=== PATIENT | male | born 1960 | race African-American/Black ===

== ENCOUNTER 2018-05-07 09:48 | Inpatient (IN) | payer MEDICAID ==
[~2018-05-07] VITALS: Ht 167.6 cm; Wt 64.9 kg
[2018-05-07] VITALS (22 sets, daily range): BP systolic 109–148; BP diastolic 35–88
[2018-05-07] MEDS ORDERED: SODIUM CHLORIDE 0.9% 1,000 ML IV ONE (10:52)
[2018-05-07] MEDS ORDERED: LEVETIRACETAM 1000MG/100ML 100 ML IV ONE (11:30)
[2018-05-07 11:53] LABS: BASOPHILS % 1.4 % (0.0-2.0); EOSINOPHILS % 0.2 % (0.0-5.0); HEMATOCRIT. 41.6 % (42.0-52.0); HEMOGLOBIN. 14.5 g/dL (14.0-18.0); LYMPHOCYTES % 11.4 % (20.0-50.0); MEAN CORPUSCULAR HEMOGLOBIN 34.6 pg (28.0-32.0); MEAN CORPUSCULAR VOLUME 99.3 fL (80.0-94.0); MEAN PLATELET VOLUME 8.2 fl (7.4-10.4); MONOCYTES % 9.5 % (2.0-8.0); NEUTROPHILS % 77.5 % (40.0-76.0); PLATELET 235 x1000/uL (130-400); RED BLOOD CELL COUNT 4.19 mill/uL (4.7-6.1); RED CELL DISTRIBUTION WIDTH 13.9 % (11.6-14.6)
[2018-05-07 11:59] LABS: CHLORIDE 100 mEq/L (98-107)
[2018-05-07 12:01] LABS: PROTHROMBIN TIME 10.5 sec (9.1-11.1)
[2018-05-07 12:03] LABS: ETHANOL BLOOD < 10 mg/dL
[2018-05-07] MEDS ORDERED: GADOBENATE DIMEGLUMINE 529 MG/ML 10ML IV ONE (12:25)
[2018-05-07 14:18] LABS: CLARITY URINE CLEAR (CLEAR); COLOR URINE YELLOW (YELLOW); KETONES URINE 1+ (NEGATIVE); LEUKOCYTE ESTERASE URINE NEGATIVE (NEGATIVE); NITRITE URINE NEGATIVE (NEGATIVE); OCCULT BLOOD URINE TRACE (NEGATIVE); PROTEIN URINE TRACE (NEGATIVE); SPECIFIC GRAVITY URINE 1.024 (1.005-1.030)
[2018-05-07 14:34] LABS: *AMPHETAMINES SCREEN URINE NEGATIVE (NEGATIVE); CANNABINOID URINE SCREEN NEGATIVE (NEGATIVE); PHENCYCLIDINE URINE SCREEN NEGATIVE (NEGATIVE)
[2018-05-07 14:35] LABS: *BARBITURATES SCREEN URINE NEGATIVE (NEGATIVE); *BENZODIAZEPINES SCREEN URINE NEGATIVE (NEGATIVE); *COCAINE SCREEN URINE NEGATIVE (NEGATIVE); METHADONE URINE SCREEN NEGATIVE (NEGATIVE); OPIATES URINE SCREEN NEGATIVE (NEGATIVE)
[2018-05-07] MEDS ORDERED: SODIUM CHLORIDE 0.45% 1,000 ML IV SCH (14:43)
[2018-05-07] MEDS ORDERED: ONDANSETRON HCL 4MG/2ML INJ IV PRN (14:45)
[2018-05-07] MEDS ORDERED: LORAZEPAM 2MG/ML CPJ IV PRN (14:45)
[2018-05-07] MEDS ORDERED: DIPHENHYDRAMINE 50MG/ML VIAL IV ONE (15:00)
[2018-05-07] MEDS ORDERED: METOCLOPRAMIDE HCL 10MG/2ML VIAL IV ONE (15:00)
[2018-05-07] MEDS ORDERED: DEXAMETHASONE 10 MG/ML VIAL IV ONE (15:00)
[2018-05-07] MEDS ORDERED: TETANUS, DIPHTHERIA, PERTUSSIS VAC/PF 0.5ML (>7YR OLD) IM ONE (15:00)
[2018-05-07] MEDS: HYDROCODONE/ACETAMINOPHEN 5/325MG TABLET PO PRN (15:09)
[2018-05-07] MEDS ORDERED: LEVETIRACETAM 500MG PREMIX 100 ML IV ONE (15:15)
[2018-05-07] MEDS ORDERED: LEVETIRACETAM 500MG PREMIX 100 ML IV SCH (17:00)
[2018-05-07] MEDS: DEXT 5%/LACTATED RINGERS 1,000 ML IV SCH (17:15)
[2018-05-07] MEDS ORDERED: NICARDIPINE 100 MG in SODIUM CHLORIDE 0.9% 60 ML IV PRN ×2 (17:30→17:45)
[2018-05-07] MEDS: DEXAMETHASONE 4MG/ML 1ML VIAL IV SCH (17:33)
[2018-05-07] MEDS ORDERED: DEXAMETHASONE 4MG/ML 1ML VIAL IV SCH (18:00)
[2018-05-07] MEDS ORDERED: MANNITOL 20% (20GM/100ML) BAG 500ML PREMIX IV NR (19:30)
[2018-05-07] MEDS: LEVETIRACETAM 500MG in SODIUM CHLORIDE 0.9% 100ML IV SCH (21:46)
[2018-05-08] VITALS (77 sets, daily range): BP systolic 72–158; BP diastolic 38–93
[2018-05-08] MEDS: DEXAMETHASONE 4MG/ML 1ML VIAL IV SCH ×4 (00:32→17:09)
[2018-05-08] MEDS: MORPHINE SULFATE 4 MG/ML CPJ (NOT FOR IM USE) IV PRN ×5 (01:48→19:55)
[2018-05-08 06:15] LABS: BASOPHILS % 0.4 % (0.0-2.0); HEMATOCRIT. 40.5 % (42.0-52.0); HEMOGLOBIN. 13.8 g/dL (14.0-18.0); LYMPHOCYTES % 14.3 % (20.0-50.0); MEAN CORPUSCULAR HEMOGLOBIN 34.2 pg (28.0-32.0); MEAN CORPUSCULAR VOLUME 100.1 fL (80.0-94.0); MEAN PLATELET VOLUME 8.8 fl (7.4-10.4); MONOCYTES % 2.7 % (2.0-8.0); NEUTROPHILS % 82.6 % (40.0-76.0); PLATELET 246 x1000/uL (130-400); RED BLOOD CELL COUNT 4.04 mill/uL (4.7-6.1); RED CELL DISTRIBUTION WIDTH 13.9 % (11.6-14.6)
[2018-05-08] MEDS ORDERED: ROCURONIUM BROMIDE 10MG/ML VIAL 5ML IV ONE ×2 (06:42→08:21)
[2018-05-08] MEDS ORDERED: FENTANYL CITRATE/PF 50MCG/ML 5ML VIAL ONE (06:42)
[2018-05-08 06:43] LABS: CHLORIDE 105 mEq/L (98-107)
[2018-05-08] MEDS ORDERED: MIDAZOLAM HCL 2 MG/2 ML VIAL ONE (06:43)
[2018-05-08] MEDS ORDERED: PROPOFOL 200MG/20ML VIAL IV ONE (06:43)
[2018-05-08] MEDS ORDERED: SODIUM CHLORIDE 0.9% 10ML VIAL ONE (06:48)
[2018-05-08] MEDS ORDERED: CEFAZOLIN SODIUM 1000MG/VIAL ONE (06:48)
[2018-05-08] MEDS ORDERED: MANNITOL 20% 500 ML IV ONE (06:53)
[2018-05-08] MEDS ORDERED: GELATIN SPONGE,ABSORBABLE 12-7MM SPONGE ONE ×2 (06:58→07:41)
[2018-05-08] MEDS ORDERED: THROMBIN (BOVINE) 5000 UNITS/VIAL TOP ONE ×2 (06:59→07:41)
[2018-05-08] MEDS ORDERED: BACITRACIN 50,000 UNITS/VIAL ONE (06:59)
[2018-05-08] MEDS ORDERED: LIDOCAINE HCL/EPINEPHRINE 1%-EPI 1:100,000 20 ML VIAL ONE (06:59)
[2018-05-08] MEDS ORDERED: BACITRACIN 15GM TUBE TOP ONE (07:29)
[2018-05-08] MEDS ORDERED: POVIDONE-IODINE OINT 28.4GM TOP ONE (07:29)
[2018-05-08] MEDS ORDERED: PHENYTOIN SODIUM 500 MG in SODIUM CHLORIDE 0.9% 50 ML IV ONE (07:30)
[2018-05-08] MEDS ORDERED: DEXAMETHASONE 4MG/ML 1ML VIAL ONE (07:51)
[2018-05-08] MEDS ORDERED: GLYCOPYRROLATE 0.2 MG/ML 2ML VIAL ONE (09:50)
[2018-05-08] MEDS ORDERED: ESMOLOL HCL 10MG/ML 10ML VIAL IV ONE (10:08)
[2018-05-08] MEDS ORDERED: LIDOCAINE HCL/PF 1% 10 MG/ML 5ML VIAL ONE (10:09)
[2018-05-08] MEDS: LEVETIRACETAM 500MG in SODIUM CHLORIDE 0.9% 100ML IV SCH ×2 (10:55→20:26)
[2018-05-08] MEDS: DEXT 5%/LACTATED RINGERS 1,000 ML IV SCH (10:55)
[2018-05-08] MEDS: NICARDIPINE 100 MG in SODIUM CHLORIDE 0.9% 60 ML IV PRN ×2 (10:56→20:14)
[2018-05-08] MEDS: PANTOPRAZOLE SODIUM 40 MG/VIAL IV SCH (11:42)
[2018-05-08] MEDS: CEFAZOLIN 1000MG PREMIX 50 ML IV SCH ×2 (13:18→21:41)
[2018-05-08] MEDS: PHENYTOIN SODIUM 250MG/5ML VIAL IV SCH ×2 (13:27→21:41)
[2018-05-08] MEDS ORDERED: CEFAZOLIN SODIUM 1000MG/VIAL IV SCH (14:00)
[2018-05-08] MEDS: HYDROMORPHONE HCL/PF 2MG/ML CPJ IV PRN ×2 (20:44→23:14)
[2018-05-09] VITALS (82 sets, daily range): BP systolic 94–167; BP diastolic 38–103
[2018-05-09] MEDS: DIPHENHYDRAMINE 50MG/ML VIAL IV PRN ×2 (00:29→06:07)
[2018-05-09] MEDS: DEXAMETHASONE 4MG/ML 1ML VIAL IV SCH ×5 (00:29→23:42)
[2018-05-09] MEDS: HYDROMORPHONE HCL/PF 2MG/ML CPJ IV PRN (04:29)
[2018-05-09] MEDS: PHENYTOIN SODIUM 250MG/5ML VIAL IV SCH ×3 (06:07→21:02)
[2018-05-09] MEDS: CEFAZOLIN 1000MG PREMIX 50 ML IV SCH ×3 (06:07→21:01)
[2018-05-09] MEDS: DEXT 5%/LACTATED RINGERS 1,000 ML IV SCH ×2 (06:43→20:50)
[2018-05-09] MEDS: PANTOPRAZOLE SODIUM 40 MG/VIAL IV SCH (09:00)
[2018-05-09] MEDS: LEVETIRACETAM 500MG in SODIUM CHLORIDE 0.9% 100ML IV SCH ×2 (09:00→20:50)
[2018-05-09] MEDS: NICOTINE 7MG PATCH TD SCH (09:01)
[2018-05-09] MEDS: MORPHINE SULFATE 4 MG/ML CPJ (NOT FOR IM USE) IV PRN (11:07)
[2018-05-09] MEDS: NICARDIPINE 100 MG in SODIUM CHLORIDE 0.9% 60 ML IV PRN (12:47)
[2018-05-09] MEDS: ACETAMINOPHEN 325MG TABLET PO PRN ×2 (12:49→19:45)
[2018-05-10] VITALS (26 sets, daily range): BP systolic 116–142; BP diastolic 67–98
[2018-05-10] MEDS: MORPHINE SULFATE 4 MG/ML CPJ (NOT FOR IM USE) IV PRN ×2 (04:01→14:30)
[2018-05-10] MEDS: HYDRALAZINE HCL 25MG TABLET PO SCH ×3 (05:09→21:36)
[2018-05-10] MEDS: DEXAMETHASONE 4MG/ML 1ML VIAL IV SCH ×3 (05:09→18:19)
[2018-05-10] MEDS: CEFAZOLIN 1000MG PREMIX 50 ML IV SCH ×2 (05:10→13:20)
[2018-05-10] MEDS: PHENYTOIN SODIUM 250MG/5ML VIAL IV SCH ×3 (05:10→21:36)
[2018-05-10] MEDS: AMLODIPINE 10MG TABLET PO SCH (09:02)
[2018-05-10] MEDS: NICOTINE 7MG PATCH TD SCH (09:02)
[2018-05-10] MEDS: LEVETIRACETAM 500MG in SODIUM CHLORIDE 0.9% 100ML IV SCH ×2 (09:02→21:22)
[2018-05-10] MEDS: PANTOPRAZOLE SODIUM 40 MG/VIAL IV SCH (09:02)
[2018-05-10] MEDS ORDERED: GADOBENATE DIMEGLUMINE 529 MG/ML 10ML IV ONE (09:10)
[2018-05-10] MEDS: ACETAMINOPHEN 325MG TABLET PO PRN (12:00)
[2018-05-10] MEDS: HYDROCODONE/ACETAMINOPHEN 5/325MG TABLET PO PRN (20:17)
[2018-05-11] VITALS (18 sets, daily range): BP systolic 121–150; BP diastolic 72–97
[2018-05-11] MEDS: DEXAMETHASONE 4MG/ML 1ML VIAL IV SCH ×4 (00:37→18:07)
[2018-05-11 05:38] LABS: CHLORIDE 99 mEq/L (98-107)
[2018-05-11 05:39] LABS: BASOPHILS % 0.1 % (0.0-2.0); HEMATOCRIT. 37.7 % (42.0-52.0); HEMOGLOBIN. 12.9 g/dL (14.0-18.0); LYMPHOCYTES % 9.4 % (20.0-50.0); MEAN CORPUSCULAR HEMOGLOBIN 34.2 pg (28.0-32.0); MEAN CORPUSCULAR VOLUME 100.1 fL (80.0-94.0); MEAN PLATELET VOLUME 8.5 fl (7.4-10.4); MONOCYTES % 8.3 % (2.0-8.0); NEUTROPHILS % 82.2 % (40.0-76.0); PLATELET 220 x1000/uL (130-400); RED BLOOD CELL COUNT 3.76 mill/uL (4.7-6.1); RED CELL DISTRIBUTION WIDTH 13.6 % (11.6-14.6)
[2018-05-11] MEDS: HYDRALAZINE HCL 25MG TABLET PO SCH ×3 (06:50→21:55)
[2018-05-11] MEDS: PHENYTOIN SODIUM 250MG/5ML VIAL IV SCH ×2 (06:50→14:52)
[2018-05-11] MEDS: HYDROCODONE/ACETAMINOPHEN 5/325MG TABLET PO PRN ×2 (06:50→21:56)
[2018-05-11] MEDS: NICOTINE 7MG PATCH TD SCH (08:57)
[2018-05-11] MEDS: PANTOPRAZOLE SODIUM 40 MG/VIAL IV SCH (08:57)
[2018-05-11] MEDS: AMLODIPINE 10MG TABLET PO SCH (08:58)
[2018-05-11] MEDS: LEVETIRACETAM 500MG in SODIUM CHLORIDE 0.9% 100ML IV SCH ×2 (08:58→21:58)
[2018-05-11] MEDS: MORPHINE SULFATE 4 MG/ML CPJ (NOT FOR IM USE) IV PRN ×2 (10:59→11:12)
[2018-05-11] MEDS: ACETAMINOPHEN 325MG TABLET PO PRN (18:48)
[2018-05-12] VITALS: BP 131/78
[2018-05-12] MEDS: DEXAMETHASONE 4MG/ML 1ML VIAL IV SCH ×2 (02:04→06:00)
[2018-05-12] MEDS: PHENYTOIN SODIUM 250MG/5ML VIAL IV SCH ×2 (02:06→06:00)
[2018-05-12] MEDS: HYDRALAZINE HCL 25MG TABLET PO SCH ×3 (06:00→21:09)
[2018-05-12 08:00] VITALS: BP 139/88
[2018-05-12] MEDS: FAMOTIDINE 20MG/2ML VIAL IV SCH ×2 (09:00→21:00)
[2018-05-12] MEDS: LEVETIRACETAM 500MG in SODIUM CHLORIDE 0.9% 100ML IV SCH (09:00)
[2018-05-12] MEDS: AMLODIPINE 10MG TABLET PO SCH (09:31)
[2018-05-12] MEDS: HYDROCODONE/APAP 7.5/325MG 1 TAB TABLET PO PRN ×4 (09:31→22:43)
[2018-05-12] MEDS: NICOTINE 7MG PATCH TD SCH (09:33)
[2018-05-12] MEDS: LEVETIRACETAM 500MG/5ML CUP PO SCH ×2 (10:21→21:07)
[2018-05-12] MEDS: DEXAMETHASONE 4MG TABLET PO SCH (10:21)
[2018-05-12 12:00] VITALS: BP 135/78
[2018-05-12] MEDS: PHENYTOIN SODIUM EXTENDED 100MG CAPSULE PO SCH ×2 (13:51→21:07)
[2018-05-12 16:00] VITALS: BP 136/72
[2018-05-12 20:00] VITALS: BP 128/79
[2018-05-13] VITALS: BP 120/72
[2018-05-13] MEDS: HYDROCODONE/APAP 7.5/325MG 1 TAB TABLET PO PRN ×5 (02:26→21:17)
[2018-05-13 04:00] VITALS: BP 130/77
[2018-05-13] MEDS: HYDRALAZINE HCL 25MG TABLET PO SCH ×3 (06:14→21:18)
[2018-05-13] MEDS: PHENYTOIN SODIUM EXTENDED 100MG CAPSULE PO SCH ×3 (06:15→21:17)
[2018-05-13 08:00] VITALS: BP 136/86
[2018-05-13] MEDS: FAMOTIDINE 20MG/2ML VIAL IV SCH ×2 (08:45→21:00)
[2018-05-13] MEDS: LEVETIRACETAM 500MG/5ML CUP PO SCH ×2 (08:46→21:16)
[2018-05-13] MEDS: AMLODIPINE 10MG TABLET PO SCH (08:46)
[2018-05-13] MEDS: DEXAMETHASONE 4MG TABLET PO SCH (08:46)
[2018-05-13] MEDS: NICOTINE 7MG PATCH TD SCH (08:47)
[2018-05-13 12:00] VITALS: BP 119/71
[2018-05-13 16:00] VITALS: BP 117/77
[2018-05-13] MEDS: MORPHINE SULFATE 4 MG/ML CPJ (NOT FOR IM USE) IV PRN (17:03)
[2018-05-13] MEDS: ACETAMINOPHEN 325MG TABLET PO PRN (19:38)
[2018-05-13 21:43] VITALS: BP 116/77
[2018-05-14] VITALS: BP 121/68
[2018-05-14 04:00] VITALS: BP 114/69
[2018-05-14] MEDS: PHENYTOIN SODIUM EXTENDED 100MG CAPSULE PO SCH ×3 (06:04→22:44)
[2018-05-14] MEDS: HYDROCODONE/APAP 7.5/325MG 1 TAB TABLET PO PRN ×2 (06:05→10:15)
[2018-05-14] MEDS: HYDRALAZINE HCL 25MG TABLET PO SCH ×3 (06:06→22:44)
[2018-05-14 08:00] VITALS: BP 124/78
[2018-05-14] MEDS: FAMOTIDINE 20MG/2ML VIAL IV SCH ×2 (09:00→21:00)
[2018-05-14] MEDS: LEVETIRACETAM 500MG/5ML CUP PO SCH ×2 (09:23→21:02)
[2018-05-14] MEDS: DEXAMETHASONE 2MG TABLET PO SCH (09:23)
[2018-05-14] MEDS: AMLODIPINE 10MG TABLET PO SCH (09:23)
[2018-05-14] MEDS: NICOTINE 7MG PATCH TD SCH (09:24)
[2018-05-14 12:00] VITALS: BP 104/66
[2018-05-14] MEDS: OXYCODONE HCL 5MG TABLET PO PRN ×2 (14:50→21:03)
[2018-05-14 16:00] VITALS: BP 118/72
[2018-05-14 20:00] VITALS: BP 108/73
[2018-05-15] VITALS: BP 111/70
[2018-05-15 04:00] VITALS: BP 120/74
[2018-05-15] MEDS: OXYCODONE HCL 5MG TABLET PO PRN ×3 (04:07→18:27)
[2018-05-15] MEDS: PHENYTOIN SODIUM EXTENDED 100MG CAPSULE PO SCH ×3 (05:17→22:32)
[2018-05-15] MEDS: HYDRALAZINE HCL 25MG TABLET PO SCH ×3 (05:17→22:32)
[2018-05-15] MEDS: NICOTINE 7MG PATCH TD SCH (09:00)
[2018-05-15] MEDS: ACETAMINOPHEN 325MG TABLET PO PRN ×2 (09:12→18:27)
[2018-05-15] MEDS: DEXAMETHASONE 2MG TABLET PO SCH (09:12)
[2018-05-15] MEDS: AMLODIPINE 10MG TABLET PO SCH (09:12)
[2018-05-15] MEDS: LEVETIRACETAM 500MG/5ML CUP PO SCH ×2 (09:13→20:27)
[2018-05-15] MEDS: FAMOTIDINE 20MG/2ML VIAL IV SCH ×2 (09:13→09:16)
[2018-05-15 11:15] VITALS: BP 110/69
[2018-05-15 16:00] VITALS: BP 126/82
[2018-05-15 18:23] VITALS: BP 119/84
[2018-05-15] MEDS: AMITRIPTYLINE 25MG TABLET PO SCH (20:27)
[2018-05-16] VITALS: BP 107/69
[2018-05-16] MEDS: ACETAMINOPHEN 325MG TABLET PO PRN (03:41)
[2018-05-16] MEDS: OXYCODONE HCL 5MG TABLET PO PRN ×3 (03:42→23:34)
[2018-05-16 04:00] VITALS: BP 113/60
[2018-05-16] MEDS: PHENYTOIN SODIUM EXTENDED 100MG CAPSULE PO SCH ×3 (05:21→23:30)
[2018-05-16] MEDS: HYDRALAZINE HCL 25MG TABLET PO SCH ×3 (05:21→23:32)
[2018-05-16 08:00] VITALS: BP 118/78
[2018-05-16] MEDS: FAMOTIDINE 20MG/2ML VIAL IV SCH (09:00)
[2018-05-16] MEDS: LEVETIRACETAM 500MG/5ML CUP PO SCH ×2 (09:32→23:30)
[2018-05-16] MEDS: AMLODIPINE 10MG TABLET PO SCH (09:32)
[2018-05-16] MEDS: NICOTINE 7MG PATCH TD SCH (09:32)
[2018-05-16 12:00] VITALS: BP 120/83
[2018-05-16 16:00] VITALS: BP 118/79
[2018-05-16] MEDS: AMITRIPTYLINE 25MG TABLET PO SCH (23:31)
[2018-05-17] VITALS: BP 130/84
[2018-05-17 04:00] VITALS: BP 128/77
[2018-05-17] MEDS: PHENYTOIN SODIUM EXTENDED 100MG CAPSULE PO SCH ×2 (07:13→13:07)
[2018-05-17] MEDS: HYDRALAZINE HCL 25MG TABLET PO SCH ×2 (07:13→13:29)
[2018-05-17 08:00] VITALS: BP 127/80
[2018-05-17] MEDS: LEVETIRACETAM 500MG/5ML CUP PO SCH (08:35)
[2018-05-17] MEDS: FAMOTIDINE 20MG/2ML VIAL IV SCH ×3 (08:35→08:40)
[2018-05-17] MEDS: OXYCODONE HCL 5MG TABLET PO PRN ×2 (08:36→08:39)
[2018-05-17] MEDS: AMLODIPINE 10MG TABLET PO SCH (08:38)
[2018-05-17] MEDS: NICOTINE 7MG PATCH TD SCH (08:38)
[2018-05-17 10:37] LABS: CHLORIDE 95 mEq/L (98-107)
[2018-05-17 10:39] LABS: HEMATOCRIT. 43.5 % (42.0-52.0); MEAN CORPUSCULAR HEMOGLOBIN 34.3 pg (28.0-32.0); MEAN CORPUSCULAR VOLUME 99.2 fL (80.0-94.0); MEAN PLATELET VOLUME 6.9 fl (7.4-10.4); PLATELET 408 x1000/uL (130-400); RED BLOOD CELL COUNT 4.38 mill/uL (4.7-6.1); RED CELL DISTRIBUTION WIDTH 13.2 % (11.6-14.6)
[2018-05-17 13:25] VITALS: BP 137/91
[2018-05-17 16:00] VITALS: BP 119/83
[2018-05-17 22:54] LABS: PLATELET ESTIMATE SLIGHTLY INCREASED
== END 2018-05-17 16:18 | DRG 21 ==
LOC: ER 09:48 → SUPCPDRO 14:41 → EDBEDREQ 15:04 → EDBEDREQSVC 15:04 → ENRESERV 16:28 → MICUSO 16:52 → MICUNO 05-08 07:00 → 6EST 05-11 12:54
PROVIDERS: ADMIT Hospitalist; ATTEND Hospitalist
PROC: 00U207Z Supplement Dura Mater with Autologous Tissue Substitute, Open Approach (ICD-10-PCS; principal; 2018-05-08)
PROC: 00B10ZZ Excision of Cerebral Meninges, Open Approach (ICD-10-PCS; 2018-05-08)
DX: D32.0 Benign neoplasm of cerebral meninges (principal); G93.6 Cerebral edema; E66.9 Obesity, unspecified; F17.210 Nicotine dependence, cigarettes, uncomplicated; G43.909 Migraine, unspecified, not intractable, without status migrainosus; R31.9 Hematuria, unspecified; G40.89 Other seizures; Z71.6 Tobacco abuse counseling; Z68.23 Body mass index [BMI] 23.0-23.9, adult
CPT/HCPCS: 36415; 36430; 70553; 71045; 80048; 80076; 80185; 80305; 86850; 86900; 86920; 88307; 88331; 90715; 93005; 96365; 96375; 97116; 97163; 99285; 99406; A9577; C1713; C9113; G0482; J0690; J1100; J1165; J1170; J1200; J1953; J2250; J2270; J2704; J2765; J3010; J3490; J7030; J7050; J7120; J8540

== ENCOUNTER 2019-07-09 13:36 | Emergency (ER) | payer MEDICAID ==
[~2019-07-09] VITALS: Ht 165.1 cm; Wt 75.0 kg
[2019-07-09] MEDS ORDERED: HYDROCODONE/ACETAMINOPHEN 5/325MG TABLET PO ONE (15:00)
[2019-07-09] MEDS ORDERED: KETOROLAC 60MG/2ML VIAL IM ONE (15:00)
[2019-07-09 15:08] LABS: CHLORIDE 107 mEq/L (98-107)
[2019-07-09 15:09] LABS: BASOPHILS % 2.6 % (0.0-2.0); EOSINOPHILS % 4.4 % (0.0-5.0); HEMATOCRIT. 45.3 % (42.0-52.0); HEMOGLOBIN. 15.7 g/dL (14.0-18.0); LYMPHOCYTES % 38.5 % (20.0-50.0); MEAN CORPUSCULAR HEMOGLOBIN 31.7 pg (28.0-32.0); MEAN CORPUSCULAR VOLUME 91.5 fL (80.0-94.0); MEAN PLATELET VOLUME 7.9 fl (7.4-10.4); MONOCYTES % 9.7 % (2.0-8.0); NEUTROPHILS % 44.8 % (40.0-76.0); PLATELET 348 x1000/uL (130-400); RED BLOOD CELL COUNT 4.95 mill/uL (4.7-6.1); RED CELL DISTRIBUTION WIDTH 14.8 % (11.6-14.6)
[2019-07-09] MEDS ORDERED: DEXTROSE 50% WATER 50ML SYRINGE IV NR (15:45)
[2019-07-09 18:46] VITALS: BP 128/80
== END 2019-07-09 18:47 | disposition home or self-care (01) ==
LOC: ER 13:36
DX: R51 Headache (principal); Z85.05 Personal history of malignant neoplasm of liver
CPT/HCPCS: 36415; 70450; 80053; 82962; 85025; 96372; 99284; J1885

== ENCOUNTER 2020-01-20 12:13 | Emergency (ER) | payer MEDICAID ==
[~2020-01-20] VITALS: Ht 167.6 cm; Wt 63.6 kg
[2020-01-20 13:34] VITALS: BP 137/82
== END 2020-01-20 14:59 | disposition left against medical advice (07) ==
LOC: ER 12:13
DX: Z53.21 Procedure and treatment not carried out due to patient leaving prior to being seen by health care provider (principal)

== ENCOUNTER 2020-03-28 03:18 | Emergency (ER) | payer MEDICAID ==
[~2020-03-28] VITALS: Ht 167.6 cm; Wt 61.0 kg
[2020-03-28] MEDS ORDERED: ACETAMINOPHEN 325MG TABLET PO STA (03:52)
[2020-03-28 03:55] VITALS: BP 149/100
[2020-03-28] MEDS ORDERED: MAGNESIUM 1 G PREMIX 100 ML IV ONE (04:00)
[2020-03-28] MEDS ORDERED: LEVETIRACETAM 500MG TABLET PO ONE (04:00)
[2020-03-28] MEDS ORDERED: DEXAMETHASONE 10 MG/ML VIAL IV ONE (04:00)
[2020-03-28] MEDS ORDERED: METOCLOPRAMIDE HCL 10MG/2ML VIAL IV ONE (04:00)
[2020-03-28] MEDS ORDERED: DIPHENHYDRAMINE 50MG/ML VIAL IV ONE (04:00)
[2020-03-28] MEDS ORDERED: SODIUM CHLORIDE 0.9% 1,000 ML IV ONE (04:00)
== END 2020-03-28 04:37 | disposition left against medical advice (07) ==
LOC: ER 03:18
DX: R51.9 Headache, unspecified (principal); I10 Essential (primary) hypertension; Z85.9 Personal history of malignant neoplasm, unspecified; Z87.891 Personal history of nicotine dependence
CPT/HCPCS: 99281; J7030